=== PATIENT | female | born 1945 | race Caucasian/White ===

== ENCOUNTER 2018-06-14 12:00 | Inpatient (IN) ==
[2018-06-18] MEDS ORDERED: Gelatin Size 100 Topical Foam ONE (07:12)
[2018-06-18] MEDS ORDERED: Bupivacaine/Epinephrine 0.5% Inj 50 ML Vial ONE (07:12)
[2018-06-18] MEDS ORDERED: ceFAZolin 2 GM Premix Inj 2 GM/50 ML PIGGYBACK IV.SIG ONE (07:12)
[2018-06-18] MEDS ORDERED: Thrombin Topical Soln 5,000 UNIT Vial TOPICAL ONE (07:12)
[2018-06-18] MEDS ORDERED: Sodium Chloride 0.9% 2 ML Flush PRN IV.FLUSH (10:42)
[2018-06-18] MEDS ORDERED: Chlorhexidine Gluconate 2% 1 Pack (2 Cloths) TOPICAL ONE (10:45)
[2018-06-18] MEDS ORDERED: Sodium Chlor 0.9% Inj 500 ML IV.CONT ONE (10:45)
[2018-06-18] MEDS ORDERED: Metoprolol Tartrate 25 MG Tablet PO ONE (10:45)
[2018-06-18 10:53] LABS: Bilirubin,Urine Negative (Negative); Clarity,Urine Clear (Clear); Color,Urine Yellow (Yellw/Straw); Glucose,Urine (UA) Negative (Negative); Leukocyte Esterase,Urine Negative (Negative); Mucus,Urine Few /lpf (Occasional); Nitrite,Urine Negative (Negative); Specific Gravity,Urine 1.013 (1.002-1.035); Squamous Epithelial Cell,Urine <1 /hpf (0-5)
[2018-06-18] MEDS ORDERED: Vancomycin Inj 1,000 MG in Sodium Chlor 0.9% Inj 250 ML IV.SIG SCH (11:00)
[2018-06-18] MEDS ORDERED: Sod Chloride 0.9% Inj 1,000 ML IV.CONT SCH (11:00)
[2018-06-18 11:34] LABS: Prothrombin Time 10.2 sec (9.8-11.6)
[2018-06-18] MEDS ORDERED: fentaNYL Citrate Inj 250 MCG/5 ML Ampul ONE (11:40)
[2018-06-18] MEDS ORDERED: Sodium Chlor 0.9% Inj 250 ML IV.CONT ONE (11:59)
[2018-06-18] MEDS ORDERED: Lidocaine PF 1% Inj 5 ML Syringe OTHER ONE (11:59)
[2018-06-18] MEDS ORDERED: Electrolytes R/Dextrose 5% Inj 1,000 ML IV.CONT ONE (11:59)
[2018-06-18] MEDS ORDERED: Phenylephrine/NS 1000 MCG/10ML Syringe IV.PUSH ONE (11:59)
[2018-06-18] MEDS ORDERED: Glycopyrrolate Inj 1 MG/5 ML Syringe IV.PUSH ONE (11:59)
[2018-06-18] MEDS ORDERED: Neostigmine Inj 5 MG/5 ML Syringe IV.PUSH ONE (11:59)
[2018-06-18] MEDS ORDERED: Bisacodyl 10 MG Supp RECTAL PRN (16:21)
[2018-06-18] MEDS ORDERED: Naloxone Inj 0.4 MG/ML Vial IV.PUSH PRN (16:24)
--- NOTE | 2018-06-18 16:39 | P.OP ---
Preoperative Diagnosis: Lumbar degenerative disk disease with spinal stenosis Postoperative Diagnosis: Lumbar degenerative disk disease with spinal stenosis Date of procedure: 06/18/18 Procedure: L3-4 laminectomy, interbody arthrodhesis using PEEK cage and autologous bone graft, L3-L4 instrumental fixation using transpedicular screws and rods, L3-L4 posterolateral fusion using autologous bone graft and demineralized bone matrix. Microsurgical dissection Anesthesia: JOSE A Surgeon: Donis Luong MD Superintendent Communications: Chel Sofia Pathology: none sent Operation and Findings: INDICATIONS FOR THE SURGICAL PROCEDURE Ms Perez is a 73 year-old male with history of a prior L4-5 laminectomy and fusion who presented with intractable mechanical back pain and leoncio evidence of L4 lower extremity radiculopathy. SHe developed degeneration with severe facet arthropathy, loss of disk space, and stenosis at L3-4, adjacent to her prior fusion. SHe failed maximum nonsurgical management including multiple modalities of conservative treatment as well as pain management interventions by an interventional pain specialist. A surgical decompression and arthrodhesis were indicated as a last resort The [id number] details of the procedure, indications, alternatives, risks and potential complications were fully discussed with the patient. The patient fully understood. All the questions were answered. No guarantees were given. The patient voiced requesting the procedure and provided informed consents. The patient was offered the alternative of delaying the procedure and continuing with nonsurgical management. DETAILS OF THE SURGICAL PROCEDURE Prior to the procedure, the surgical incision was marked in the preoperative surgical holding room, and the procedure, risks, and potential complications revisited with the patient. Placement of electrodes for intraoperative neurophysiological monitoring was completed. The patient was taken to the operative room, and following induction of general anesthesia, endotracheal intubation was performed. A Street catheter, bilateral JENNIFER hose and sequential compression devices were placed and kept throughout the procedure. The patient was positioned prone, over a Aiden table over a bolsters. All pressure in the preoperative surgical holding room points were carefully padded with eggcrate and gel mattress. The eyes were tapped shut after ointment was applied by the anesthesiologist to prevent corneal abrasion. A Zohaib hugger was placed over the expossed lower body to maintain control of the core body temperature. The electrophysiological team placed the needles and electrodes in their proper location and baseline SSEP's and EMG potentials were registered. The entrance to each pedicles was marked using a C arm. The lumbar region was prepped and draped in the usual sterile fashion. The surgical procedure was performed in several steps as follow: SURGICAL APPROACH Once the patient was positioned, a localizing cross-table lateral x-ray was performed with a C-arm. Two paramedian small incisions were outlined on the skin approximately 3-4 cm from the midline. The skin incisions were made with a #10 blade. Small bleeders were controlled with the cautery. The dissection was then carried out into deeper planes and through the thoracolumbar fascia with a Bovie. The intermuscular septum was identified and the muscles were blunted dissected along the septum. The facets and transverse process of L3 and L4 were exposed and the proper anatomical landmarks were identified. A microsurgical self-retaining retractor was placed on the incision, and a localizing lateralizing cross-table x-ray was performed with an instrument underneath a lamina of the lumbar spine. At this point of the procedure, the caps of the previously placed screws were sequentially removed allowing removal of the right sided denise INSTRUMENTAL FIXATION INSTRUMENTAL FIXATION At this point of the procedure, placement of bilateral transpedicular screws was necessary for stabilization of the spine. Initially, the entry point for the screw was selected anatomically at the junction of the facet joint, transverse process and para interarticularis. Bilateral transpedicular screws were placed at L3, and at L4. The screw trajectory was initiated, the entry point for the screw was selected anatomically at the junction of the facet, with the transverse process, and the pars interarticularis at L3 and L4. This was started with a Giamshetti needle followed by the use of a finney wire. A tap was used to create the threads for the screws. Finally bilateral transpedicular screws were carefully placed bilaterally at L3, and L4 under fluoroscopic visualization. An appropriate purchase was achieved with all screws. The position of each screw was assessed anatomically with an AP, lateral, oblique Xrays. An intraoperative scan view of the spine was then performed using the iso-centric c-arm. Each screw was then assessed electrophysiologically stimulating each screw with a nerve stimulator. SURGICAL DECOMPRESSION There was significant mass effect with compression of the neural structures. In order to relieve neural compression, it was necessary to perform a decompressive laminectomy, with decompression of the spinal canal and bilateral lateral recesses. Note that the scope of such decompression was significantly more extensive than the minimal exposure necessary to perform an interbody fusion, as there was extreme facet arthropathy with near complete collapse of the disk spaces and severe stenosis cause by the hyperthrophic joint facets. At this point of the procedure the operative microscope was draped in the usual sterile fashion and brought to the field. The rest of the surgical procedure was performed using microdissection technique with the exception of the closure. Under the operating microscope, a right decompressive hemilaminectomy was carried out at L3-L4 as follow: The laminae, base of the spinous processes and facets were carefully drilled exposing the ligamentum flavum. The facets were abnormal with severe spondylosis. A disk protusion was compressing the neural structures and exiting nerve roots. A near complete facetectomy was necessary with in further instability. The ligamentum flavum appeared hypertrophic. The superior free border of the ligamentum flavum was elevated with a ligament dissector and the ligamentum flavum was removed with a 3 and 4 mm Kerrison forceps. The ligament was very adherent to the dural sac and during the dissection, and extreme care was taken during the dissection. The exiting nerve roots were identified, and a wide foraminotomy was performed with a Kerrison in their trajectory towards the neural foramen. Epidural veins located laterally to the dural sac were coagulated with the bipolar cautery, and then incised using microscissors. Gentle medial retraction of the dural sac allowed me to expose the disc space for the discectomy. Upon completion of the discectomy, an excellent decompression of the neural structures was achieved. INTERBODY ARTHRODHESIS In order to correct the narrowing of the disk space and maintain distraction of the space, and to achieve a solid interbody fusion, it was necessary the insertion of an interbody device into the disk space. Otherwise, the disk space would collapse, compromising the result of the surgical procedure. At this point of the procedure, the annulus fibrosus of the disk was carefully coagulated with a bipolar cautery and incised using an 11 bladed knife. Then, a microdiscectomy was carried out in a standard fashion using a combination of straight and up-biting pituitary forceps. A reverse angle curette was applied underneath the posterior longitudinal ligament, and used to push the disk fragments into the disk space, so they can be safely removed with a pituitary forceps. Once the discectomy was completed, it was necessary to decorticate the endplates, in order to eliminate the cartilaginous endplate and to expose healthy bone appropriate to perform the interbody fusion. The endplates at L3- L4 were then thoroughly decorticated using increasing size bone shayy and ring curets, eliminating the cartilaginous fragments from both, the superior and inferior endplates. A disk space distractor was applied to the pedicle screws and gentle distraction was applied. This maneuver was assisted by the use of a disk distractor. Once a thorough preparation of the disk space was achieved, the disk space was irrigated with antibiotic solution, and the interbody fusion was performed by carefully impacting an expandable PPEK cage filled with autologous iliac crest bone graft. The cage was carefully expanded. A solid position of the cage with good purchase was achieved. The position of the cage was assessed anatomically with a probe and radiologically with the C- arm. POSTEROLATERAL FUSION The posterolateral fusion is a critical component to the procedure, to prevent future fatigue and failure of the instrumental fixation. Initially, the transverse processes of the vertebral bodies, lateral surface of the facets and the lateral gutters of the spine were carefully cleaned, eliminating all soft tissue and muscle attachments. The area was then irrigated with a large amount of antibiotic solution. Subsequently, the transverse processes, lateral surface of the facets, and lateral gutters of the spine were thoroughly decorticated using the TPS drill with a 5mm cutting meena, exposing cancellous bone, in preparation for the posterolateral fusion. The incision was again irrigated with antibiotic solution. Then, the posterolateral fusion was then performed by carefully packing the lateral gutters of the spine at L3-L4 with autologous iliac crest bone combined with demineralized bone matrix. COMPLETION OF THE INSTRUMENTATION AND CLOSURE The rods were brought to the field, applied to all the screws, and the screw caps were sequentially applied. Compression was performed between the pedicle screws, and final tightening of the screws was completed using a torque wrench. The incision was again thoroughly irrigated with several liters of antibiotic solution, and hemostasis secured with the bipolar cautery. A Valsalva Maneuver performed by the anesthesiologist failed to show any evidence of cerebrospinal fluid leak or bleeding. A 7 mm Aiden-Anaya drain was left in the epidural space and externalized through a separate stab incision. The incision was then closed in planes. 0 Vicryl was used in an interrupted fashion to close the thoracolumbar fascia and the superficial fascia. The subcutaneous tissue was then approximated using 3-0 Vicryl in an interrupted fashion. Special care was taken to avoid space. The skin was then closed with 4-0 Vicryl in a running, subcuticular fashion. Dermabond was applied to the skin. Each plane of closure was irrigated with antibiotic solution. At the end of the procedure the sponge, needle and instrument counts were all correct. Estimated blood loss was 150 cc. No blood transfusion was given. The entire procedure was performed using continuous electrophysiological monitoring of the somatosensorial evoked potentials and EMG. The patient received prophylactic antibiotics. The patient was then extubated and transferred to the recovery room in stable condition.
[2018-06-18] MEDS ORDERED: *morphine SULFATE 10 MG/ML PERIprocedure ONLY ONE (16:43)
[2018-06-18] MEDS ORDERED: fentaNYL Citrate Inj 100 MCG/2 ML Ampul ONE (16:45)
[2018-06-18] MEDS ORDERED: Morphine Inj 4 MG/ML Vial ONE (16:45)
[2018-06-18] MEDS: HYDROmorphone PCA Inj 6 MG/30 ML PCA.VIAL PCA PRN ×2 (17:53→22:00)
[2018-06-18] MEDS ORDERED: HYDROmorphone PF Inj 2 MG/ML Vial ONE (17:56)
--- NOTE | 2018-06-18 18:16 | XR ---
EXAM DATE: 06/18/2018 12:00 AM EDT AGE/SEX: 73 years / Female INDICATIONS: Lumbar fusion, L3-4. CLINICAL DATA: This is the patient's initial encounter. Patient reports that signs and symptoms have been present for 1 day and indicates a pain score of Nonresponsive. MEDICAL/SURGICAL HISTORY: Non-responsive. Non-responsive. [place] [facility] [place] [facility] [place] [facility] [place] 08/06/2012. . FINDINGS: 2 views in the operating room show fusion with posterior and interbody instrumentation at L3/L4. Alig nment is near-anatomic. Surgical drain is present. There is interbody instrumentation again seen at L 4/L5; posterior instrumentation at this level has been removed. CONCLUSION: Fusion procedure at L3/L4 in near-anatomic alignment. No acute complication demonstrated. Electronically signed by: Michael Castro MD 06/18/2018 6:15 PM EDT
[2018-06-18] MEDS: ceFAZolin 2 GM Premix Inj 2 GM/50 ML PIGGYBACK IV.SIG SCH (21:19)
[2018-06-18] MEDS: Senna/Docusate Sodium 8.6/50 MG Tablet PO SCH (21:20)
[2018-06-18] MEDS: Sodium Chloride 0.9% 2 ML Flush BID IV.FLUSH SCH (21:20)
[2018-06-18] MEDS: dilTIAZem 60 MG Tablet PO SCH (21:20)
[2018-06-18] MEDS: Pantoprazole Sodium 20 MG DR Tablet PO SCH (21:20)
[2018-06-19] MEDS: ceFAZolin 2 GM Premix Inj 2 GM/50 ML PIGGYBACK IV.SIG SCH ×2 (03:05→12:39)
[2018-06-19] MEDS: HYDROmorphone PCA Inj 6 MG/30 ML PCA.VIAL PCA PRN ×4 (05:32→22:03)
[2018-06-19 06:18] LABS: Baso % (Auto) 0.1 % (0.0-2.0); Hematocrit 33.7 % (35.0-46.0); Hemoglobin 11.1 gm/dL (11.6-15.3); Lymph # (Auto) 1.4 th/mm3 (1.0-4.8); Lymph % (Auto) 11.1 % (9.0-44.0); Mean Corpuscular Hemoglobin 29.3 pg (27.0-34.0); Mean Corpuscular Volume 88.9 fL (80.0-100.0); Mean Platelet Volume 7.2 fL (7.0-11.0); Mono # (Auto) 1.2 th/mm3 (0.0-0.9); Mono % (Auto) 9.7 % (0.0-8.0); Neut # (Auto) 10.1 th/mm3 (1.8-7.7); Neut % (Auto) 79.1 % (16.0-70.0); Platelet Count 259 th/mm3 (150-450); Red Blood Count 3.79 mil/mm3 (4.00-5.30); Red Cell Distribution Width 16.1 % (11.6-17.2); White Blood Count 12.8 th/mm3 (4.0-11.0)
[2018-06-19 06:28] LABS: Anion Gap 9 meq/L (5-15); Blood Urea Nitrogen 11 mg/dL (7-18); Calcium 7.5 mg/dL (8.5-10.1); Carbon Dioxide 25.4 meq/L (21.0-32.0); Chloride 109 meq/L (98-107); Glomerular Filtration Rate Greater Than 89 mL/min (>89); Glucose,Random 122 mg/dL (74-106); Potassium 4.6 meq/L (3.5-5.1); Sodium 143 meq/L (136-145)
[2018-06-19] MEDS: Pantoprazole Sodium 20 MG DR Tablet PO SCH ×2 (08:28→21:14)
[2018-06-19] MEDS: Senna/Docusate Sodium 8.6/50 MG Tablet PO SCH ×2 (08:28→21:14)
[2018-06-19] MEDS: dilTIAZem 60 MG Tablet PO SCH ×2 (09:00→21:14)
[2018-06-19] MEDS: Sodium Chloride 0.9% 2 ML Flush BID IV.FLUSH SCH ×2 (09:00→21:14)
--- NOTE | 2018-06-19 12:22 | P.CONIM ---
History of Present Illness Service: [facility] Consult date: 06/19/18 Requesting Physician: Donis Luong Reason for Consult: MEDICAL MANAGEMENT Primary Care Provider: Moni Goncalves Chief Complaint: MEDICAL MANAGEMENT History of Present Illness: 73-year-old female who underwent procedure with Dr. Luong yesterday4 lumbar degenerative disease with spinal stenosis. Patient had an L3-L4 laminectomy, with interbody arthrodesis using a peek cage and autologous bone graft, L3-L4 instrument fixation using transpedicular screws and rods, L3-L4 posterior lateral fusion using autologous bone graft and demineralized bone matrix. Microsurgical dissection by Dr. Luong Patient tolerated the procedure well we have now been asked to help regarding medical management. Patient's past medical history is significant for anxiety, cancer, chronic GERD , hypertension, depression, history of hysterectomy, hypothyroidism, history of lumbar back pain with radiculopathy affecting lower extremities, migraines, and spinal stenosis. Has had multiple surgeries including a colonoscopy and esophagogastroduodenoscopy, gastric bypass, right knee, surgery of a umbilical hernia repair, history of cholecystectomy, previous back surgery, status post bilateral carpal tunnel release, history of a failed lap band surgery, and abdominoplasty Review of Systems All other systems reviewed negative except as stated in HPI PMFSH - History History Provided By: Patient, Family Member - Medical History Medical History: Medical History (Last Reviewed 06/19/18 @ 12:16 by Miquel Jacobson DO) Anxiety Cancer Chronic GERD Depression H/O: hysterectomy Hypertension Hypothyroidism Lumbar back pain with radiculopathy affecting lower extremity Migraines Spinal stenosis - Surgical History Surgical History: Surgical History (Last Reviewed 06/19/18 @ 12:16 by Miquel Jacobson DO) H/O colonoscopy H/O esophagogastroduodenoscopy H/O gastric bypass H/O right knee surgery H/O umbilical hernia repair History of cholecystectomy Previous back surgery S/p bilateral carpal tunnel release - Family History Family History: Family History (Last Updated 06/19/18 @ 12:17 by Miquel Jacobson DO) Other Family history of hypertension - Social History I have reviewed the patient's Social History: Yes - Tobacco History Second Hand Smoke Exposure: No Tobacco Use In Past 30 Days: No Smoking Status: Former smoker - Alcohol History How Often Do You Have a Drink Containing Alcohol: Monthly or less - Substance Use History Substance History: No History of Abuse - Travel History History of Recent Travel: No Recent Travel in the [place] Within the Last 8 Weeks: No Recent Travel Out of the Country Within the Last 8 Weeks: No - Immunization History Tetanus Immunization: Unsure Hx Influenza Vaccine This Season: No Medications and Allergies Active Medications: Active Medications Hydrocodone Bitart/Acetaminophen ([place] 10/325) 2 tab PO Q4H PRN PRN Reason: PAIN SCALE 6 TO 10 Al Hydroxide/Mg Hydroxide (Milk Of Magnesia Liq) 30 ml PO Q12H PRN PRN Reason: Mild Constipation Bisacodyl (Dulcolax Supp) 10 mg RECTAL DAILY PRN PRN Reason: SEVERE CONSITIPATION Diltiazem HCl (Cardizem) 60 mg PO BID [facility] Last Admin: 06/19/18 09:00 Dose: 60 mg Hyoscyamine (Levsin) 0.125 mg PO TID [facility] Last Admin: 06/19/18 08:28 Dose: 0.125 mg Cefazolin Sodium/Dextrose (Ancef 2 Gm Premix Inj) 2 gm in 50 mls @ 100 mls/hr IV.SIG Q8H [facility] Stop: 06/19/18 12:29 Last Infusion: 06/19/18 03:41 Dose: Infused Potassium Chloride/Sodium Chloride (Ns + Kcl 20 Meq Inj) 1,000 mls @ 100 mls/ hr IV.CONT .Q10H [facility] Last Admin: 06/19/18 03:09 Dose: 100 mls/hr Hydromorphone/Sodium Chloride (Dilaudid Tool Honing Machine Set Up Operator Inj) 6 mg in 30 mls @ 0 mls/hr [employer]CTOR [employer]CH[employer] UNSCH PRN PRN Reason: per TRACTOR MECHANIC parameters Last Admin: 06/19/18 05:32 Dose: 0 mls/hr Lactulose (Lactulose Liq) 30 ml PO DAILY PRN PRN Reason: SEVERE CONSITIPATION Levothyroxine Sodium (Synthroid) 25 mcg PO DAILY@0600 [facility] Last Admin: 06/19/18 05:09 Dose: 25 mcg Miscellaneous Information (Mis Nursing Information) 1 each OTHER UNSCH PRN PRN Reason: SEE LABEL COMMENTS Stop: 06/19/18 16:31 Naloxone HCl (Narcan Inj) 0.4 mg IV.PUSH PRN PRN PRN Reason: SEE LABEL COMMENTS TRACTOR MECHANIC Dosage Infused (Pha) (Tool Honing Machine Set Up Operator Total Dose - Dilaudid) 1 each MISCELLANE Q8HR [facility] Last Admin: 06/19/18 05:32 Dose: 1 each Pantoprazole Sodium (Protonix) 20 mg PO BID [facility] Last Admin: 06/19/18 08:28 Dose: 20 mg Senna/Docusate Sodium (Rola-Colace) 1 tab PO BID [facility] Last Admin: 06/19/18 08:28 Dose: 1 tab Sennosides (Senokot) 17.2 mg PO Q12H PRN PRN Reason: Moderate Constipation Sodium Chloride (Ns Flush) 2 ml IV.FLUSH BID [facility] Last Admin: 06/19/18 09:00 Dose: 2 ml Sodium Chloride (Ns Flush) 2 ml IV.FLUSH PRN PRN PRN Reason: FLUSH AFTER USING IV ACCESS Allergies Allergy/AdvReac Type Severity Reaction Status Date / Time No Known Allergies Allergy Unverified 06/18/18 10:45 Home Medications Medication Instructions Recorded Confirmed Type diltiazem HCl 60 mg PO BID 06/18/18 06/18/18 History esomeprazole magnesium [Nexium 20 mg PO BID 06/18/18 06/18/18 History 24HR] hyoscyamine sulfate 0.125 mg PO TID 06/18/18 06/18/18 History levothyroxine 25 mcg PO DAILY 06/18/18 06/18/18 History Exam Vital signs: Vital Signs 06/18/18 16:32 06/18/18 16:45 06/18/18 17:00 Temperature 97.4 F L Pulse Rate 76 72 66 Respiratory Rate 16 16 16 Blood Pressure 131/65 139/79 143/71 H Pulse Oximetry 97 97 98 06/18/18 17:15 06/18/18 17:30 06/18/18 17:45 Temperature Pulse Rate 64 70 64 Respiratory Rate 16 16 16 Blood Pressure 138/70 125/66 140/76 Pulse Oximetry 96 99 96 06/18/18 18:00 06/18/18 20:00 06/18/18 20:37 Temperature 97.3 F L Pulse Rate 60 70 Respiratory Rate 16 17 Blood Pressure 136/76 104/58 L Pulse Oximetry 96 97 99 06/18/18 22:08 06/19/18 00:00 06/19/18 00:20 Temperature 97.2 F L Pulse Rate 61 Respiratory Rate 18 17 18 Blood Pressure 112/59 L Pulse Oximetry 94 L 06/19/18 00:36 06/19/18 02:17 06/19/18 04:00 Temperature 98.0 F Pulse Rate 63 Respiratory Rate 17 18 17 Blood Pressure 108/61 Pulse Oximetry 96 06/19/18 05:48 06/19/18 08:00 06/19/18 12:07 Temperature 97.3 F L Pulse Rate 56 L Respiratory Rate 18 18 Blood Pressure 107/59 L Pulse Oximetry 96 96 Intake & Output 06/18/18 06/19/18 06/19/18 18:59 06:59 18:59 Intake Total 1650 / 1650 1100 / 1100 Output Total 1550 / 1550 45 / 45 Balance 100 / 100 1055 / 1055 Weight 82.1 kg 82.1 kg Intake: IV 250 / 250 1100 / 1100 NS + KCl 20 mEq Inj 1,000 ML @ 1000 / 1000 100 mls/hr IV.CONT .Q10H [facility] Rx #:[id number] Vancomycin Inj 1,000 MG In NS 250 / 250 Inj 250 ML @ 250 mls/hr IV.SIG [place] [facility] Rx#:[id number] Ancef 2 GM Premix Inj 2 gm In 100 / 100 50 ml @ 100 mls/hr IV.SIG Q8H [facility] Rx#:[id number] Anesthesia Amount 1400 / 1400 Output: Estimated Blood Loss 150 / 150 Urine Amount (Catheter) 1400 / 1400 Indwelling Urethral Catheter 1400 / 1400 Wound Drainage 45 / 45 # 1 Right Lower Back TIFFANY Drain 45 / 45 Other: Date of Last Bowel Movement 06/17/18 Weight On Admission 82.1 kg Narrative: GENERAL: Awake alert and oriented x3 talkative and cooperative SKIN: Warm and dry. HEAD: Atraumatic. Normocephalic. EYES: Pupils equal and round. No scleral icterus. No injection or drainage. EOMI ENT: No nasal bleeding or discharge. Mucous membranes pink and moist. Tongue is midline NECK: Trachea midline. No JVD. Supple CARDIOVASCULAR: Regular rate and rhythm. S1-S2 no S3 or S4 RESPIRATORY: No accessory muscle use. Clear to auscultation. Breath sounds equal bilaterally. GASTROINTESTINAL: Abdomen soft, non-tender, nondistended. Hepatic and splenic margins not palpable. MUSCULOSKELETAL: Extremities without clubbing, cyanosis, or edema. No obvious deformities. NEUROLOGICAL: Awake and alert. No obvious cranial nerve deficits. Motor grossly within normal limits. Five out of 5 muscle strength in the arms and legs. Normal speech. PSYCHIATRIC: Appropriate mood and affect; insight and judgment normal. Results - Labs CBC & Chem 7: 06/19/18 05:42 06/19/18 05:42 Labs: Laboratory Results - last 24 hr 06/18/18 06/19/18 06/19/18 11:00 05:42 05:42 WBC 12.8 H RBC 3.79 L Hgb 11.1 L Hct 33.7 L MCV 88.9 MCH 29.3 MCHC 33.0 RDW 16.1 Plt Count 259 MPV 7.2 Neut % (Auto) 79.1 H Lymph % (Auto) 11.1 Emery % (Auto) 9.7 H Eos % (Auto) 0.0 Baso % (Auto) 0.1 Neut # (Auto) 10.1 H Lymph # (Auto) 1.4 Emery # (Auto) 1.2 H Eos # (Auto) 0.0 Baso # (Auto) 0.0 WBC Differential . Differential Comment Auto diff final Sodium 143 Potassium 4.6 Chloride 109 H Carbon Dioxide 25.4 Anion Gap 9 BUN 11 Creatinine 0.57 Estimated GFR Greater than 89 Random Glucose 122 H Calcium 7.5 L Nasal Screen MRSA (PCR) Not detected - Imaging Impressions Lumbar Spine X-Ray 06/18/18 00:00 CONCLUSION: Fusion procedure at L3/L4 in near-anatomic alignment. No acute complication demonstrated. Assessment and Plan - Plan Status post lumbar surgery with Dr. Luong for a lumbar degenerative disc disease with spinal stenosis and L3-L4 laminectomy, interbody arthrodesis using peek cage and autologous bone graft, L3-L4 instrumental fixation using transpedicular screws and rods, L3-L4 posterior lateral fusion using autologous bone graft and demineralized bone matrix and microsurgical dissection Pain control per neurosurgery PT and OT Increase activity Anxiety resume home medications Chronic GERD continue on home medications Depression resume home medications Hypertension resume home medications Hypothyroidism resume home medication and check TSH and free T4 A.m. labs PT and OT to eval and treat DVT prophylaxis per neurosurgery GI prophylaxis by home meds A.m. labs Code Status: FULL CODE Discussed Condition With: RN AND PT AND CM Discharge Planning: PENDING NEUROSURGERY CLEARANCE
--- NOTE | 2018-06-19 16:07 | P.PNNS ---
Subjective Interval history: s/p L3-4 laminectomy, interbody arthrodhesis using PEEK cage and autologous bone graft, L3-L4 instrumental fixation using transpedicular screws and rods, L3 -L4 posterolateral fusion using autologous bone graft and demineralized bone matrix. Microsurgical dissection, POD 1 pt reports nausea, moderate postoperative pain, dry mouth. Physical Exam Vital signs: Vital Signs 06/18/18 16:32 06/18/18 16:45 06/18/18 17:00 Temperature 97.4 F L Pulse Rate 76 72 66 Respiratory Rate 16 16 16 Blood Pressure 131/65 139/79 143/71 H Pulse Oximetry 97 97 98 06/18/18 17:15 06/18/18 17:30 06/18/18 17:45 Temperature Pulse Rate 64 70 64 Respiratory Rate 16 16 16 Blood Pressure 138/70 125/66 140/76 Pulse Oximetry 96 99 96 06/18/18 18:00 06/18/18 20:00 06/18/18 20:37 Temperature 97.3 F L Pulse Rate 60 70 Respiratory Rate 16 17 Blood Pressure 136/76 104/58 L Pulse Oximetry 96 97 99 06/18/18 22:08 06/19/18 00:00 06/19/18 00:20 Temperature 97.2 F L Pulse Rate 61 Respiratory Rate 18 17 18 Blood Pressure 112/59 L Pulse Oximetry 94 L 06/19/18 00:36 06/19/18 02:17 06/19/18 04:00 Temperature 98.0 F Pulse Rate 63 Respiratory Rate 17 18 17 Blood Pressure 108/61 Pulse Oximetry 96 06/19/18 05:48 06/19/18 08:00 06/19/18 12:00 Temperature 97.3 F L 97.5 F L Pulse Rate 56 L 62 Respiratory Rate 18 18 18 Blood Pressure 107/59 L 122/60 Pulse Oximetry 96 97 06/19/18 12:07 06/19/18 13:12 Temperature Pulse Rate Respiratory Rate 18 Blood Pressure Pulse Oximetry 96 Intake & Output 06/18/18 06/19/18 06/19/18 18:59 06:59 18:59 Intake Total 1650 / 1650 1100 / 1100 Output Total 1550 / 1550 45 / 45 Balance 100 / 100 1055 / 1055 Weight 82.1 kg 82.1 kg Intake: IV 250 / 250 1100 / 1100 NS + KCl 20 mEq Inj 1,000 ML @ 1000 / 1000 100 mls/hr IV.CONT .Q10H MADELYN Rx #:[id number] Vancomycin Inj 1,000 MG In NS 250 / 250 Inj 250 ML @ 250 mls/hr IV.SIG [employer] SCIENCES MANAGER MADELYN Rx#:[id number] Ancef 2 GM Premix Inj 2 gm In 100 / 100 50 ml @ 100 mls/hr IV.SIG Q8H MADELYN Rx#:[id number] Anesthesia Amount 1400 / 1400 Output: Estimated Blood Loss 150 / 150 Urine Amount (Catheter) 1400 / 1400 Indwelling Urethral Catheter 1400 / 1399 Wound Drainage 45 # 1 Right Lower Back TIFFANY Drain 45 Other: Date of Last Bowel Movement 06/17/18 Weight On Admission 82.1 kg Narrative: awake, alert, sitting up in chair eating lunch TIFFANY drain intact with minimal drainage TLSO in place - Urinary Catheter Management Indwelling Urethral Catheter Cath placed during this visit: yes Reason for continuing: Acute urinary retention Insertion date: 06/18/18 Insertion time: 12:20 Assessment and Plan - Plan 73 y/o female s/p L3-4 laminectomy, interbody arthrodhesis using PEEK cage and autologous bone graft, L3-L4 instrumental fixation using transpedicular screws and rods, L3 -L4 posterolateral fusion using autologous bone graft and demineralized bone matrix. Microsurgical dissection 06/18/18 POD 1, moderate post-op pain, nausea Plan: started on zofran prn nausea cont TITLE CLOSER for pain control cont TIFFANY draining PT, TLSO when out of bed remove roldan now patient is ambulating, cont supportive care, SCDs and TEDs for dvt prophylaxis appreciate Dr. Jacobson's assistance
[2018-06-20] MEDS: HYDROmorphone PCA Inj 6 MG/30 ML PCA.VIAL PCA PRN (05:54)
[2018-06-20 07:24] LABS: Baso % (Auto) 0.4 % (0.0-2.0); Eos % (Auto) 0.4 % (0.0-4.0); Hemoglobin 11.4 gm/dL (11.6-15.3); Lymph # (Auto) 2.1 th/mm3 (1.0-4.8); Lymph % (Auto) 19.6 % (9.0-44.0); Mean Corpuscular HGB Conc 33.4 % (32.0-36.0); Mean Corpuscular Hemoglobin 29.9 pg (27.0-34.0); Mean Corpuscular Volume 89.5 fL (80.0-100.0); Mean Platelet Volume 7.5 fL (7.0-11.0); Mono # (Auto) 1.7 th/mm3 (0.0-0.9); Mono % (Auto) 15.5 % (0.0-8.0); Neut % (Auto) 64.1 % (16.0-70.0); Platelet Count 241 th/mm3 (150-450); Red Cell Distribution Width 16.3 % (11.6-17.2); White Blood Count 10.9 th/mm3 (4.0-11.0)
[2018-06-20 07:34] LABS: Alanine Aminotransferase 31 U/L (10-53); Albumin 2.8 g/dL (3.4-5.0); Anion Gap 6 meq/L (5-15); Aspartate Aminotransferase 57 U/L (15-37); Blood Urea Nitrogen 10 mg/dL (7-18); Calcium 8.1 mg/dL (8.5-10.1); Carbon Dioxide 28.6 meq/L (21.0-32.0); Chloride 104 meq/L (98-107); Glomerular Filtration Rate 86 mL/min (>89); Glucose,Random 95 mg/dL (74-106); Magnesium 1.7 mg/dL (1.5-2.5); Phosphorus 2.2 mg/dL (2.5-4.9); Potassium 3.8 meq/L (3.5-5.1); Sodium 139 meq/L (136-145)
[2018-06-20 07:44] LABS: Alkaline Phosphatase 41 U/L (45-117); Free T4 (Free Thyroxine) 1.18 ng/dL (0.76-1.46); Total Protein 6.1 g/dL (6.4-8.2)
[2018-06-20] MEDS: Pantoprazole Sodium 20 MG DR Tablet PO SCH ×2 (08:46→21:02)
[2018-06-20] MEDS: Senna/Docusate Sodium 8.6/50 MG Tablet PO SCH ×2 (08:46→21:02)
[2018-06-20] MEDS: Sodium Chloride 0.9% 2 ML Flush BID IV.FLUSH SCH ×2 (08:47→22:01)
[2018-06-20] MEDS: dilTIAZem 60 MG Tablet PO SCH ×2 (08:47→21:02)
[2018-06-20] MEDS: Potassium Phos/Sodium Phos 250 MG Tablet PO SCH ×2 (09:00→13:33)
--- NOTE | 2018-06-20 09:10 | P.PNNS ---
Subjective Interval history: feeling a bit better today, eating her breakfast. she wanted DESIGN CONSULTANT out as causing bruises in her arms. she is ok with oral pain control. Physical Exam Vital signs: Vital Signs 06/19/18 12:00 06/19/18 12:07 06/19/18 13:12 Temperature 97.5 F L Pulse Rate 62 Respiratory Rate 18 18 Blood Pressure 122/60 Pulse Oximetry 97 96 06/19/18 16:00 06/19/18 17:12 06/19/18 19:18 Temperature 98.1 F Pulse Rate 70 Respiratory Rate 18 4 L 18 Blood Pressure 119/68 Pulse Oximetry 98 06/19/18 19:23 06/19/18 22:02 06/19/18 23:13 Temperature 97.9 F Pulse Rate 76 Respiratory Rate 18 18 17 Blood Pressure 132/61 Pulse Oximetry 95 06/19/18 23:28 06/19/18 23:51 06/20/18 02:30 Temperature 98.2 F Pulse Rate 85 Respiratory Rate 17 18 17 Blood Pressure 116/55 L Pulse Oximetry 92 L 06/20/18 05:35 06/20/18 06:19 Temperature Pulse Rate Respiratory Rate 18 18 Blood Pressure Pulse Oximetry Intake & Output 06/19/18 06/20/18 06/20/18 18:59 06:59 18:59 Intake Total 960 / 960 360 / 360 Output Total 45 / 45 Balance 960 / 960 315 / 315 Intake: Oral 960 / 960 360 / 360 Output: Wound Drainage 45 / 45 # 1 Right Lower Back TIFFANY Drain 45 / 45 Other: # Voids 1 5 Date of Last Bowel Movement 06/17/18 # Bowel Movements 0 Narrative: awake, alert, sitting up in chair with LSO brace wound covered with optifoam dressing clean, dry, intact TIFFANY drain intact with minimal drainage moves BLE 5/5 - Urinary Catheter Management Indwelling Urethral Catheter Cath placed during this visit: yes, but has since been removed by the nurse Reason for continuing: Not indwelling catheter Insertion date: 06/18/18 Insertion time: 12:20 Removal date: 06/19/18 Removal time: 16:30 Assessment and Plan - Plan 73 y/o female s/p L3-4 laminectomy, interbody arthrodhesis using PEEK cage and autologous bone graft, L3-L4 instrumental fixation using transpedicular screws and rods, L3 -L4 posterolateral fusion using autologous bone graft and demineralized bone matrix. Microsurgical dissection 06/18/18 POD 2, moderate post-op pain, controlled Plan: started on zofran prn nausea DESIGN CONSULTANT dc'ed as IV line causing bruising in her arms, dc TIFFANY drain PT, Dr. Luong cleared to switch TLSO to LSO, when out of bed cont supportive care, SCDs and TEDs for dvt prophylaxis anticipate dc home tomorrow
--- NOTE | 2018-06-20 10:31 | P.PN ---
Subjective Interval history: Follow-up on patient status post lumbar fusion with instrumentation L3-L4. Patient seen and examined. Patient encountered sitting up in bedside chair in her room. She states she has some lightheadedness this morning. She denies any visual disturbances. She denies any fever or chills. She denies any chest pain or shortness of breath. She denies any nausea, vomiting or abdominal pain. She has not had a bowel movement since admission but states that her appetite is not been very good since the surgery. He is asking if SCDs can be removed while she is up in the chair. She is also asking if she can wear her old LSO brace instead of the TLSO. Physical Exam Vital signs: Vital Signs 06/19/18 12:00 06/19/18 12:07 06/19/18 13:12 Temperature 97.5 F L Pulse Rate 62 Respiratory Rate 18 18 Blood Pressure 122/60 Pulse Oximetry 97 96 06/19/18 16:00 06/19/18 17:12 06/19/18 19:18 Temperature 98.1 F Pulse Rate 70 Respiratory Rate 18 4 L 18 Blood Pressure 119/68 Pulse Oximetry 98 06/19/18 19:23 06/19/18 22:02 06/19/18 23:13 Temperature 97.9 F Pulse Rate 76 Respiratory Rate 18 18 17 Blood Pressure 132/61 Pulse Oximetry 95 06/19/18 23:28 06/19/18 23:51 06/20/18 02:30 Temperature 98.2 F Pulse Rate 85 Respiratory Rate 17 18 17 Blood Pressure 116/55 L Pulse Oximetry 92 L 06/20/18 05:35 06/20/18 06:19 06/20/18 08:00 Temperature 97.8 F Pulse Rate 79 Respiratory Rate 18 18 20 Blood Pressure 111/69 Pulse Oximetry 95 Intake & Output 06/19/18 06/20/18 06/20/18 18:59 06:59 18:59 Intake Total 960 / 960 360 / 360 Output Total Balance 960 / 960 315 / 315 -15 Intake: Oral 960 / 960 360 / 360 Output: Wound Drainage # 1 Right Lower Back TIFFANY Drain Other: # Voids 1 5 Date of Last Bowel Movement 06/17/18 # Bowel Movements 0 Narrative: GENERAL: Well-developed well-nourished elderly female patient, no acute distress. Awake and alert. SKIN: Warm and dry. No generalized rash. lumbar incision covered with postop dressing, clean dry and intact. TIFFANY drain in place with small amount of sanguinous fluid in reservoir. HEENT: Atraumatic. Normocephalic. Pupils equal and round. No scleral icterus. No injection or drainage. EOMI. No nasal bleeding or discharge. Mucous membranes pink and moist. Tongue is midline NECK: Trachea midline. CARDIOVASCULAR: Slightly tachycardic on exam today. No murmurs auscultated. RESPIRATORY: No accessory muscle use. Clear to auscultation anteriorly. Breath sounds equal bilaterally. GASTROINTESTINAL: Abdomen soft, non-tender, nondistended. +Hypoactive bowel sounds. MUSCULOSKELETAL: Extremities without clubbing, cyanosis, or edema. No obvious deformities. NEUROLOGICAL: Awake and alert. No obvious cranial nerve deficits. Motor grossly within normal limits. Able to move all extremities spontaneously. Normal speech. PSYCHIATRIC: Appropriate mood and affect; insight and judgment normal. - Urinary Catheter Management Indwelling Urethral Catheter Cath placed during this visit: yes, but has since been removed by the nurse Reason for continuing: Not indwelling catheter Insertion date: 06/18/18 Insertion time: 12:20 Removal date: 06/19/18 Removal time: 16:30 Results - Labs CBC & Chem 7: 06/20/18 06:06 06/20/18 06:06 Laboratory Results - last 24 hr 06/20/18 06/20/18 06:06 06:06 WBC 10.9 RBC 3.80 L Hgb 11.4 L Hct 34.0 L MCV 89.5 MCH 29.9 MCHC 33.4 RDW 16.3 Plt Count 241 MPV 7.5 Neut % (Auto) 64.1 Lymph % (Auto) 19.6 [place] % (Auto) 15.5 H Eos % (Auto) 0.4 Baso % (Auto) 0.4 Neut # (Auto) 7.0 Lymph # (Auto) 2.1 [place] # (Auto) 1.7 H Eos # (Auto) 0.0 Baso # (Auto) 0.0 WBC Differential . Differential Comment Auto diff final Sodium 139 Potassium 3.8 D Chloride 104 Carbon Dioxide 28.6 Anion Gap 6 BUN 10 Creatinine 0.67 Estimated GFR 86 L Random Glucose 95 Calcium 8.1 L Phosphorus 2.2 L Magnesium 1.7 Total Bilirubin 0.4 AST 57 H ALT 31 Alkaline Phosphatase 41 L Total Protein 6.1 L Albumin 2.8 L TSH 3.290 Free T4 1.18 Assessment and Plan - Plan 73-year-old female status post L3-L4 fusion with instrumentation Degenerative disc disease lumbar spine Lumbar radiculopathy Status post lumbar fusion with instrumentation L3-L4 -Management per neurosurgery team -Pain management per neurosurgery team with bowel regimen -PT/OT -Monitor wound for healing -IS at bedside, encouraged use -supportive care Hypertension -Continue on home dose of Cardizem -Monitor BP and adjust treatment accordingly Hypophosphatemia, mild -Oral repletion ordered Chronic GERD -PPI Chronic anxiety Hypothyroidism TSH WNL -Continue on home dose of Synthroid DVT prophylaxis, per neurosurgery Code Status: FULL Discharge Planning: discharge disposition per NS service
[2018-06-20 17:43] LABS: Hemoglobin A1c 6.4 % (4.3-6.0)
[2018-06-21] MEDS: Potassium Phos/Sodium Phos 250 MG Tablet PO SCH ×4 (05:28→18:48)
[2018-06-21] MEDS: Pantoprazole Sodium 20 MG DR Tablet PO SCH ×2 (08:44→20:10)
[2018-06-21] MEDS: Senna/Docusate Sodium 8.6/50 MG Tablet PO SCH ×2 (08:45→20:10)
[2018-06-21] MEDS: dilTIAZem 60 MG Tablet PO SCH ×2 (08:50→20:10)
[2018-06-21] MEDS: Sodium Chloride 0.9% 2 ML Flush BID IV.FLUSH SCH ×2 (08:50→20:10)
--- NOTE | 2018-06-21 10:29 | P.DCO ---
- Physical Therapy Order: Improve ambulation - Home Health Nursing Order: Medical education, Signs/symptoms of disease process, Medication education-adverse effect, Wound care and dressing changes (please see d/c wound care orders), Nursing assessment with vital signs - Case Management Consult Yes - Certification I have seen patient Mabel Perez on 06/21/18. My clinical findings support the need for the requested home health care services because: Deconditioned with increased weakness, Limited ability to care for self, High risk of falls I certify that my clinical findings support that this patient is homebound because: Post-op weakness, Unsteady gait/balance, Unsafe to leave home unassisted
--- NOTE | 2018-06-21 10:39 | P.PN ---
Subjective Interval history: Follow-up on patient status post lumbar fusion with instrumentation L3-L4. Patient seen and examined. Patient is hopeful she will go home later today. She states her back pain is controlled. She denies any chest pain or shortness of breath. She continues to have little appetite and some nausea. She denies any abdominal pain. She denies any episodes of emesis. She denies any urinary difficulties. She has not had a bowel movement but is passing flatus. Physical Exam Vital signs: Vital Signs 06/20/18 12:00 06/20/18 16:00 06/20/18 20:00 Temperature 97.4 F L 98 F 98.5 F Pulse Rate 72 79 63 Respiratory Rate 21 20 18 Blood Pressure 91/60 L 99/62 L 112/62 Pulse Oximetry 93 L 94 L 95 06/21/18 00:00 06/21/18 00:36 06/21/18 04:00 Temperature 97.9 F 99.9 F H Pulse Rate 92 H 92 H Respiratory Rate 18 17 18 Blood Pressure 122/59 L 120/59 L Pulse Oximetry 95 99 06/21/18 06:00 06/21/18 08:00 Temperature 97.7 F Pulse Rate 95 H Respiratory Rate 16 14 Blood Pressure 102/63 Pulse Oximetry 94 L Intake & Output 06/20/18 06/21/18 06/21/18 18:59 06:59 18:59 Intake Total 960 / 960 240 / 240 Output Total Balance 945 / 945 240 / 240 Weight 82.1 kg Intake: Oral 960 / 960 240 / 240 Output: Wound Drainage # 1 Right Lower Back TIFFANY Drain Other: # Voids 5 2 Date of Last Bowel Movement 06/17/18 # Bowel Movements 0 Narrative: GENERAL: Well-developed well-nourished elderly female patient, no acute distress. Awake and alert. SKIN: Warm and dry. No generalized rash. lumbar incision not evaluated today. HEENT: Atraumatic. Normocephalic. Pupils equal and round. No scleral icterus. No injection or drainage. EOMI. No nasal bleeding or discharge. Mucous membranes pink and moist. Tongue is midline. NECK: Trachea midline. CARDIOVASCULAR: Slightly tachycardic on exam today. No murmurs auscultated. RESPIRATORY: No accessory muscle use. Clear to auscultation anteriorly. Breath sounds equal bilaterally. GASTROINTESTINAL: Abdomen soft, non-tender, nondistended. +Hypoactive bowel sounds. MUSCULOSKELETAL: Extremities without clubbing, cyanosis, or edema. No obvious deformities. NEUROLOGICAL: Awake and alert. No obvious cranial nerve deficits. Motor grossly within normal limits. Able to move all extremities spontaneously. Normal speech. PSYCHIATRIC: Appropriate mood and affect; insight and judgment normal. - Urinary Catheter Management Indwelling Urethral Catheter Cath placed during this visit: yes, but has since been removed by the nurse Reason for continuing: Not indwelling catheter Insertion date: 06/18/18 Insertion time: 12:20 Removal date: 06/19/18 Removal time: 16:30 Results - Labs CBC & Chem 7: 06/20/18 06:06 06/20/18 06:06 Laboratory Results - last 24 hr 06/20/18 06:05 Hemoglobin A1c 6.4 H Assessment and Plan - Plan 73-year-old female status post L3-L4 fusion with instrumentation Degenerative disc disease lumbar spine Lumbar radiculopathy Status post lumbar fusion with instrumentation L3-L4 -Management per neurosurgery team. MONAE COBB, patient may be discharged later today depending on how she does with therapy. -Pain management per neurosurgery team with bowel regimen -PT/OT -Monitor wound for healing -IS at bedside, encouraged use -supportive care Hypertension low BP this am -Continue on home dose of Cardizem -Monitor BP and adjust treatment accordingly Hypophosphatemia, mild -Oral repletion ordered Chronic GERD -PPI Chronic anxiety Hypothyroidism TSH WNL -Continue on home dose of Synthroid DVT prophylaxis, per neurosurgery Code Status: FULL Discussed Condition With: patient, David COBB Discharge Planning: discharge disposition per NS service
--- NOTE | 2018-06-21 14:42 | P.DS ---
Date of admission: 06/18/18 10:08 Primary care physician: Moni Goncalves Brief History from admission: Ms Perez is a 73 year-old male with history of a prior L4-5 laminectomy and fusion who presented with intractable mechanical back pain and leoncio evidence of L4 lower extremity radiculopathy. SHe developed degeneration with severe facet arthropathy, loss of disk space, and stenosis at L3-4, adjacent to her prior fusion. SHe failed maximum nonsurgical management including multiple modalities of conservative treatment as well as pain management interventions by an interventional pain specialist. A surgical decompression and arthrodhesis were indicated as a last resort DS: Medications - Discharge Medications Prescriptions: hydrocodone-acetaminophen 1 tab PO Q4-6H PRN 3 Days #18 tab PRN Reason: Pain Scale 6 To 10 DS: Summary Hospital Course: Ms. Perez underwent L3-4 laminectomy, interbody arthrodhesis using PEEK cage and autologous bone graft, L3-L4 instrumental fixation using transpedicular screws and rods, L3-L4 posterolateral fusion using autologous bone graft and demineralized bone matrix. Microsurgical dissection for Lumbar degenerative disk disease with spinal stenosis on 06/18/18. Her surgery went well without complications. Discharge planning with home health care and PT. - Time Spent with Patient Total time spent providing and/or coordinating discharge services: Less than 30 minutes - Quality: VTE Deep Vein Thrombosis/Pulmonary Embolism Present on Admission: No Exam Vital signs: Vital Signs 06/20/18 16:00 06/20/18 20:00 06/21/18 00:00 Temperature 98 F 98.5 F 97.9 F Pulse Rate 79 63 92 H Respiratory Rate 20 18 18 Blood Pressure 99/62 L 112/62 122/59 L Pulse Oximetry 94 L 95 95 06/21/18 00:36 06/21/18 04:00 06/21/18 06:00 Temperature 99.9 F H Pulse Rate 92 H Respiratory Rate 17 18 16 Blood Pressure 120/59 L Pulse Oximetry 99 06/21/18 08:00 06/21/18 12:00 Temperature 97.7 F 97.8 F Pulse Rate 95 H 75 Respiratory Rate 14 16 Blood Pressure 102/63 109/64 Pulse Oximetry 94 L 93 L Intake & Output 06/20/18 06/21/18 06/21/18 18:59 06:59 18:59 Intake Total 960 / 960 240 / 240 Output Total Balance 945 / 945 240 / 240 Weight 82.1 kg Intake: Oral 960 / 960 240 / 240 Output: Wound Drainage # 1 Right Lower Back TIFFANY Drain Other: # Voids 5 2 Date of Last Bowel Movement 06/17/18 06/17/18 # Bowel Movements 0 1 Results Procedures completed during hospitalization: L3-4 laminectomy, interbody arthrodhesis using PEEK cage and autologous bone graft, L3-L4 instrumental fixation using transpedicular screws and rods, L3-L4 posterolateral fusion using autologous bone graft and demineralized bone matrix. Microsurgical dissection Labs on day of discharge: Labs from last 24 hours 06/20/18 06:05 Hemoglobin A1c 6.4 H - Impressions ITS Impressions Lumbar Spine X-Ray 06/18/18 00:00 CONCLUSION: Fusion procedure at L3/L4 in near-anatomic alignment. No acute complication demonstrated. Discharge Plan - Discharge Disposition Patient Disposition: /Home Health Service - Discharge Condition Condition: Stable - Discharge Order Discharge Orders: Discharge Order (Routine); Ordered 06/21/18 Ordered By: Ita Valdez - Physicians Team Primary Care Provider: Moni Goncalves Attending Provider: Donis Luong Other Providers: [facility],Insurance ; Eagle Thomas MD - Rxs /Orders / Referrals /Forms Prescriptions: New hydrocodone-acetaminophen 10-325 mg Tablet 1 tab PO Q4-6H PRN (Reason: Pain Scale 6 To 10) 3 Days Qty: 18 RF: 0 Continue diltiazem HCl 60 mg Tablet 60 mg PO BID esomeprazole magnesium [Nexium 24HR] 20 mg Capsule,Delayed Release(Dr/Ec) 20 mg PO BID hyoscyamine sulfate 0.125 mg Tablet 0.125 mg PO TID levothyroxine 25 mcg Tablet 25 mcg PO DAILY Ambulatory Orders / Order Sets / DME: Walker With Front Wheels (1 each) (Routine) Location: Determined by Patient Ordered By: Ita Valdez Referrals: Moni Goncalves MD [Primary Care Provider] - See Instructions - Discharge Instructions Patient Printed Instructions: Lumbar Spinal Fusion (DC), Lumbar Spinal Fusion ( GEN)
[2018-06-22] MEDS: dilTIAZem 60 MG Tablet PO SCH ×2 (09:32→20:11)
[2018-06-22] MEDS: Pantoprazole Sodium 20 MG DR Tablet PO SCH ×2 (09:33→20:10)
[2018-06-22] MEDS: Senna/Docusate Sodium 8.6/50 MG Tablet PO SCH ×2 (09:33→20:10)
[2018-06-22] MEDS: Sodium Chloride 0.9% 2 ML Flush BID IV.FLUSH SCH ×2 (09:44→20:11)
--- NOTE | 2018-06-22 10:27 | P.PN ---
Subjective Interval history: Follow-up on patient status post lumbar fusion with instrumentation L3-L4. Patient seen and examined. Patient says she feels better. She says she is going home this afternoon. She denies any fever or chills. She denies any chest pain or dyspnea. She denies any N/V or abdominal pain. She reports small BM. She says she has no appetite and hasn't been eating much even food that was brought from home. Physical Exam Vital signs: Vital Signs 06/21/18 12:00 06/21/18 16:00 06/21/18 20:00 Temperature 97.8 F 97.7 F 98.1 F Pulse Rate 75 79 87 Respiratory Rate 16 14 18 Blood Pressure 109/64 125/63 134/65 Pulse Oximetry 93 L 95 94 L 06/22/18 00:00 06/22/18 04:00 06/22/18 08:00 Temperature 97.8 F 98.6 F 97.9 F Pulse Rate 82 83 84 Respiratory Rate 18 18 17 Blood Pressure 127/73 110/70 127/79 Pulse Oximetry 96 97 95 Intake & Output 06/21/18 06/22/18 06/22/18 18:59 06:59 18:59 Intake Total 860 / 860 300 / 300 Balance 860 / 860 300 / 300 Weight 85.6 kg Intake: Oral 860 / 860 300 / 300 Other: # Voids 3 3 Date of Last Bowel Movement 06/17/18 06/17/18 # Bowel Movements 1 Narrative: GENERAL: Well-developed well-nourished elderly female patient, no acute distress. Awake and alert. Resting comfortably in bed. SKIN: Warm and dry. No generalized rash. lumbar incision not evaluated today. HEENT: Atraumatic. Normocephalic. Pupils equal and round. No scleral icterus. No injection or drainage. EOMI. No nasal bleeding or discharge. Mucous membranes pink and moist. Tongue is midline. NECK: Trachea midline. CARDIOVASCULAR: Regular rate and rhythm. No murmurs auscultated. RESPIRATORY: No accessory muscle use. Clear to auscultation anteriorly. Breath sounds equal bilaterally. GASTROINTESTINAL: Abdomen soft, non-tender, nondistended. +BS. MUSCULOSKELETAL: Extremities without clubbing, cyanosis, or edema. No obvious deformities. NEUROLOGICAL: Awake and alert. No obvious cranial nerve deficits. Motor grossly within normal limits. Able to move all extremities spontaneously. Normal speech. PSYCHIATRIC: Appropriate mood and affect; insight and judgment normal. - Urinary Catheter Management Indwelling Urethral Catheter Cath placed during this visit: yes, but has since been removed by the nurse Reason for continuing: Not indwelling catheter Insertion date: 06/18/18 Insertion time: 12:20 Removal date: 06/19/18 Removal time: 16:30 Results - Labs CBC & Chem 7: 06/20/18 06:06 06/20/18 06:06 - Procedures L3-4 laminectomy, interbody arthrodhesis using PEEK cage and autologous bone graft, L3-L4 instrumental fixation using transpedicular screws and rods, L3-L4 posterolateral fusion using autologous bone graft and demineralized bone matrix. Microsurgical dissection Assessment and Plan - Plan 73-year-old female status post L3-L4 fusion with instrumentation Degenerative disc disease lumbar spine Lumbar radiculopathy Status post lumbar fusion with instrumentation L3-L4 -Management per neurosurgery team. Plans to discharge to rehab likely tomorrow. -Pain management per neurosurgery team with bowel regimen -PT/OT -Monitor wound for healing -IS at bedside, encouraged use -supportive care Hypertension -Continue on home dose of Cardizem -Monitor BP and adjust treatment accordingly Hypophosphatemia, mild -Oral repletion ordered Prediabetes A1c 6.4 -discussed lifestyle modification -recommend followup with PCP to repeat A1c in 3 mos. Chronic GERD -PPI Chronic anxiety, stable Hypothyroidism TSH WNL -Continue on home dose of Synthroid DVT prophylaxis, per neurosurgery Code Status: FULL Discussed Condition With: patient Discharge Planning: discharge disposition per NS service
--- NOTE | 2018-06-22 11:18 | P.PNNS ---
Subjective Interval history: Stable overnight, pain better controlled. Physical Exam Vital signs: Vital Signs 06/21/18 12:00 06/21/18 16:00 06/21/18 20:00 Temperature 97.8 F 97.7 F 98.1 F Pulse Rate 75 79 87 Respiratory Rate 16 14 18 Blood Pressure 109/64 125/63 134/65 Pulse Oximetry 93 L 95 94 L 06/22/18 00:00 06/22/18 04:00 06/22/18 08:00 Temperature 97.8 F 98.6 F 97.9 F Pulse Rate 82 83 84 Respiratory Rate 18 18 17 Blood Pressure 127/73 110/70 127/79 Pulse Oximetry 96 97 95 Intake & Output 06/21/18 06/22/18 06/22/18 18:59 06:59 18:59 Intake Total 860 / 860 300 / 300 Balance 860 / 860 300 / 300 Weight 85.6 kg Intake: Oral 860 / 860 300 / 300 Other: # Voids 3 3 Date of Last Bowel Movement 06/17/18 06/17/18 # Bowel Movements 1 Narrative: A&O x 3 CN II-XII intact Dressings c/d/i Full strength UE/LE - Urinary Catheter Management Indwelling Urethral Catheter Cath placed during this visit: yes, but has since been removed by the nurse Reason for continuing: Not indwelling catheter Insertion date: 06/18/18 Insertion time: 12:20 Removal date: 06/19/18 Removal time: 16:30 Assessment and Plan - Plan 73 y/o female s/p L3-4 laminectomy, interbody arthrodhesis using PEEK cage and autologous bone graft, L3-L4 instrumental fixation using transpedicular screws and rods, L3 -L4 posterolateral fusion using autologous bone graft and demineralized bone matrix. Microsurgical dissection 06/18/18 POD 4, moderate post-op pain, controlled Plan: d/c home today
[2018-06-22 21:20] VITALS: BP 135/71; PULSE 69; TEMP 97.4; O2SAT 94
[2018-06-22 23:16] VITALS: RESP 18
== END 2018-06-22 22:30 | disposition home health service (06) ==
LOC: HSDI 06-18 10:08 → N06 06-18 18:41
PROVIDERS: ADMIT Neurological Surgery; ATTEND Neurological Surgery